=== PATIENT | female | born 1985 | race Caucasian/White ===

== ENCOUNTER 2017-07-09 07:04 | Inpatient (IN) | payer OTHER ==
[~2017-07-09] VITALS: Ht 171 cm; Wt 86.2 kg
[~2017-07-09 07:04] MED LIST: CALC1TAB15 PO; PREN1TAB78 PO
[2017-07-09 07:22] VITALS: BP 110/69
[2017-07-09] MEDS ORDERED: RINGERS SOLUTION,LACTATED 1,000 ML IV PRN (07:57)
[2017-07-09] MEDS ORDERED: RINGERS SOLUTION,LACTATED 1,000 ML IV SCH (07:57)
[2017-07-09] MEDS ORDERED: OXYTOCIN 30 UNITS/LACT RINGERS 500 ML IV PRN (07:57)
[2017-07-09] MEDS ORDERED: OXYTOCIN 30 UNITS/LACT RINGERS 500 ML IV ONE (07:57)
[2017-07-09] MEDS ORDERED: OXYGEN THERAPY IH SCH (08:00)
[2017-07-09] MEDS ORDERED: METOCLOPRAMIDE HCL 5 MG/ML 2 ML VIAL IVP PRN (08:00)
[2017-07-09] MEDS ORDERED: LIDOCAINE HCL/PF 1% 30 ML VIAL INJ PRN (08:00)
[2017-07-09] MEDS ORDERED: METHYLERGONOVINE MALEATE 0.2 MG/ML VIAL IM PRN (08:00)
[2017-07-09] MEDS ORDERED: CITRIC ACID/SODIUM CITRATE 30 ML SOLUTION UDCUP PO PRN (08:00)
[2017-07-09] MEDS ORDERED: FentaNYL CITRATE-PF 100 MCG/2 ML VIAL IVP PRN (08:00)
[2017-07-09 08:32] LABS: BASOPHILS % (AUTO) 0.6 % (0.0-2.0); EOSINOPHILS % (AUTO) 1.4 % (1.0-6.0); HEMATOCRIT 35.1 % (36-46); HEMOGLOBIN 11.9 g/dL (12.0-16.0); LYMPHOCYTES # (AUTO) 2.8 K/uL (1.0-4.8); LYMPHOCYTES % (AUTO) 25.6 % (22.0-44.0); MEAN CORPUSCULAR HEMOGLOBIN 30.1 pg (26.0-34.0); MEAN CORPUSCULAR HGB CONC 33.8 G/dL (31.0-37.0); MEAN CORPUSCULAR VOLUME 89 fL (80-100); MONOCYTES # (AUTO) 1.4 K/uL (0.1-1.0); MONOCYTES % (AUTO) 13.1 % (2.0-9.0); NEUTROPHILS # (AUTO) 6.5 K/uL (1.8-7.7); NEUTROPHILS % (AUTO) 59.3 % (40.0-70.0); PLATELET COUNT (AUTO)-OB 236 K/uL (150-450); RED BLOOD CELL COUNT(AUTO) 3.95 MIL/uL (4.00-5.20); RED CELL DISTRIBUTION WIDTH 13.9 % (11.5-14.5)
[2017-07-09] MEDS ORDERED: LIDOCAINE HCL/PF 2% 5 ML VIAL ONE (14:01)
[2017-07-09] MEDS ORDERED: ROPIVACAINE HCL/PF 0.2% 0 ML ED ONE (14:01)
[2017-07-09] MEDS ORDERED: BUPIVACAINE HCL/PF 0.25% 10 ML VIAL ONE (14:01)
[2017-07-09] MEDS ORDERED: AMPICILLIN SODIUM 2 GM/NS 100 ML IV ONE (20:15)
[2017-07-09] MEDS ORDERED: SODIUM CHLORIDE 0.9% 1,000 ML IV ONE (20:17)
[2017-07-09] MEDS ORDERED: ROPIVACAINE HCL/PF 0.2% 100 ML ED ONE (23:33)
[2017-07-10] MEDS ORDERED: AMPICILLIN SODIUM 1 GM/NS 50 ML IV SCH (00:15)
[2017-07-10] MEDS ORDERED: LANOLIN 7 GM OINTMENT TP PRN (02:15)
[2017-07-10] MEDS ORDERED: GLYCERIN/WITCH HAZEL LEAF 40 PADS JAR TP PRN (02:15)
[2017-07-10] MEDS ORDERED: BENZOCAINE 20%/MENTHOL 56 GM SPRAY CANISTER TP PRN (02:15)
[2017-07-10] MEDS ORDERED: ACETAMINOPHEN/CODEINE 300-30 MG TABLET PO PRN (02:15)
[2017-07-10] MEDS ORDERED: PNEUMOCOCCAL VACCINE POLYVALENT 0.5 ML VIAL [PPSV23] IM ONE (03:00)
[2017-07-10] MEDS: IBUPROFEN 600 MG TABLET PO PRN (06:42)
[2017-07-10] MEDS: SENNA/DOCUSATE SODIUM 187-50 MG TABLET PO PRN (21:32)
[2017-07-10] MEDS: MAGNESIUM HYDROXIDE SUSPENSION 30 ML UDCUP PO PRN (21:32)
[2017-07-11 06:47] LABS: BASOPHILS % (AUTO) 0.7 % (0.0-2.0); EOSINOPHILS % (AUTO) 2.6 % (1.0-6.0); HEMATOCRIT 33.2 % (36-46); HEMOGLOBIN 11.2 g/dL (12.0-16.0); LYMPHOCYTES # (AUTO) 4.2 K/uL (1.0-4.8); LYMPHOCYTES % (AUTO) 32.6 % (22.0-44.0); MEAN CORPUSCULAR HEMOGLOBIN 30.1 pg (26.0-34.0); MEAN CORPUSCULAR HGB CONC 33.8 G/dL (31.0-37.0); MEAN CORPUSCULAR VOLUME 89 fL (80-100); MONOCYTES # (AUTO) 1.5 K/uL (0.1-1.0); MONOCYTES % (AUTO) 11.6 % (2.0-9.0); NEUTROPHILS # (AUTO) 6.8 K/uL (1.8-7.7); NEUTROPHILS % (AUTO) 52.5 % (40.0-70.0); PLATELET COUNT (AUTO)-OB 240 K/uL (150-450); RED BLOOD CELL COUNT(AUTO) 3.73 MIL/uL (4.00-5.20); RED CELL DISTRIBUTION WIDTH 14.3 % (11.5-14.5)
[2017-07-11] MEDS: IBUPROFEN 600 MG TABLET PO PRN (07:43)
[2017-07-11] MEDS: MAGNESIUM HYDROXIDE SUSPENSION 30 ML UDCUP PO PRN (08:10)
[2017-07-11] MEDS: SENNA/DOCUSATE SODIUM 187-50 MG TABLET PO PRN (08:10)
[2017-07-11] MEDS ORDERED: IBUP-2070 PO (08:37)
[2017-07-11] MEDS ORDERED: DSS100 PO (08:39)
[2017-07-11] MEDS ORDERED: FERR-89 PO (08:41)
[2017-07-11] MEDS ORDERED: PNV11TAB PO (08:42)
== END 2017-07-11 13:20 | disposition home or self-care (01) | DRG 775 ==
LOC: 4S 07:04 → OBSVTOIN 07:04
PROVIDERS: ADMIT Obstetrics & Gynecology; ATTEND Obstetrics & Gynecology
PROC: 10E0XZZ Delivery of Products of Conception, External Approach (ICD-10-PCS; principal; 2017-07-09)
PROC: 3E0R3BZ Introduction of Anesthetic Agent into Spinal Canal, Percutaneous Approach (ICD-10-PCS; 2017-07-09)
PROC: 00HU33Z Insertion of Infusion Device into Spinal Canal, Percutaneous Approach (ICD-10-PCS; 2017-07-09)
PROC: 0UQGXZZ Repair Vagina, External Approach (ICD-10-PCS; 2017-07-09)
DX: O71.4 Obstetric high vaginal laceration alone (principal); Z37.0 Single live birth; Z3A.39 39 weeks gestation of pregnancy
CPT/HCPCS: 86850; 86900; 86901; 90471; J0290; J2590; J2795; J3490; J7030; J7120